=== PATIENT | male | born 1940 | race Caucasian/White ===

== ENCOUNTER 2016-09-08 09:26 | Emergency (ER) | payer MEDICARE, MEDICAID ==
--- NOTE | ~2016-09-08 | ER ---
PATIENT'S NAME: SURI LÓPEZ [facility] AGE: 76 Y [address] ROOM: [place] [id number] LOCATION: [facility] ADMIT DATE: 09/08/2016 ER/Outpatient Report DISCHARGE DATE: 09/08/2016 FAMILY PHYSICIAN: Armin Lara MD ATTENDING PHYSICIAN: Steven Baker HISTORY OF PRESENT ILLNESS: The patient is a 76-year-old male who presented with a chief complaint of bilateral arm issues. He states he was feeling his right arm last night, and he felt a tick, so he pulled it out, put it in an ashtray, put some teachers' aide fluid on it, and then he states he doused the tick bite wound with teachers' aide fluid as well. His other complaint is on his left arm. The other morning, when he was trying to find his remote in his bed, he rolled too far on the bed, fell off the bed, scraped his left elbow on the bottom of a humidifier, and suffered from a skin tear. He states he needed to bandage it, but he wanted this checked out today. The patient's primary doctor is Dr. Armin Lara, and he has seen him recently for "lung issues" and was put on Levaquin. He was also given a dose of dexamethasone and 1 g of Rocephin while in clinic the other day. He is still currently taking the Levaquin. The patient denies any range of motion difficulties in the upper extremities. No increased swelling. No signs of infection. No nausea or vomiting, headache, vision change, chest pain, shortness of breath, abdominal pain, diarrhea or constipation, or wounds elsewhere. ALLERGIES: THE PATIENT HAS NO KNOWN MEDICAL ALLERGIES. MEDICATIONS: Reviewed and are documented in the chart, please see medical record. PAST MEDICAL HISTORY: Includes COPD, hypertension, multiple sclerosis, and a history of bronchitis. SOCIAL HISTORY: He quit smoking 16 months ago, but had a [id number] history of smoking. He denies alcohol or drug use. REVIEW OF SYSTEMS: Complete and comprehensive review of systems was completed and is negative except as noted above in the HPI. PHYSICAL EXAMINATION: VITAL SIGNS: Height 5 feet 10 inches, weight 78.1 kg, blood pressure 111/82, pulse 65, respiratory rate 24, and temperature 97 TM, and O2 of 97% on room air. PATIENT'S NAME: SURI LÓPEZ [facility] AGE: 76 Y [address] ROOM: [place] [address] LOCATION: [facility] ADMIT DATE: 09/08/2016 ER/Outpatient Report DISCHARGE DATE: 09/08/2016 FAMILY PHYSICIAN: Armin Lara MD ATTENDING PHYSICIAN: Steven Baker GENERAL: The patient is in no acute distress, uses a cane for ambulation. He is alert and oriented x4. CHEST: Clear to auscultation bilaterally. CARDIOVASCULAR: Regular rate and rhythm. No murmurs, rubs, or gallops. ABDOMEN: Normal to inspection. Soft and nontender. Positive bowel sounds. EXTREMITIES: Moves all extremities. Nontender to palpation. There is a 2 cm area of erythema consistent with subcutaneous bleeding to the right upper arm just superior to the elbow. There is an area in the center with scabbing and what appears to be a firm, nodular substance under the scab. The left upper extremity just distal to the elbow with a skin tear approximately 2 cm and signs of healing, surrounding ecchymosis, nontender. Able to move left elbow without difficulty. Nontender. Nonbony tenderness of the remainder left upper extremity. Range of motion intact throughout. No signs of infection of either wound. Otherwise, remainder of skin is warm, dry, and intact. LABORATORY DATA: CBC was obtained showing a white count of 12, hemoglobin of 12.3, and platelets of 355. EMERGENCY DEPARTMENT COURSE: The patient's wounds were cleansed with sterile saline and soap. The right tick bite wound was inspected for the head of the tick. No foreign body retention products were observed. Wound was then re-cleansed. A petroleum gauze was placed over and then wrapped appropriately. The left skin tear was cleansed with sterile saline and soap with subsequent wound dressing as the same as the right. IMPRESSION: 1. Tick bite. 2. Left elbow skin tear from a fall. DISPOSITION: The patient was discharged home in good condition. Instructed to continue his current prescription of Levaquin. The patient was also instructed to follow up with his primary care provider in 2 to 3 days for re-evaluation of the skin wounds to ensure no signs of infection begin to develop. The patient was given wound care instructions which include keeping the areas clean and dry. AUREA NIELSEN MD RESIDENT FOR MD RESHMA WILLIAM/beronica PATIENT'S NAME: SURI LÓPEZ [facility] AGE: 76 Y [address] ROOM: [place] [address] LOCATION: [facility] ADMIT DATE: 09/08/2016 ER/Outpatient Report DISCHARGE DATE: 09/08/2016 FAMILY PHYSICIAN: Armin Lara MD ATTENDING PHYSICIAN: Steven Baker /[id number] d: 09/08/16 1645 t: 09/10/16 0612, OUTPATIENT REPORT
--- NOTE | ~2016-09-08 | ER ---
PATIENT'S NAME: SURI LÓPEZ [facility] AGE: 76 Y [address] ROOM: [place] [address] LOCATION: [facility] ADMIT DATE: 09/08/2016 ER/Outpatient Report DISCHARGE DATE: 09/08/2016 FAMILY PHYSICIAN: Armin Lara MD ATTENDING PHYSICIAN: Steven Baker HISTORY OF PRESENT ILLNESS: This patient is a 76-year-old male, who found a tick on his right arm. He tried to remove it, but he thinks the tick's head is still imbedded in his arm. He also suffered a skin tear to his left elbow. I saw the patient along with Dr. Palacios, resident from [facility] that is working here in the emergency department with Dr. Baker. See Dr. Palacios's dictation in the patient's ER visit. I agree with her assessment, impression, and treatment plan. MD PASQUALE WILLIAM/modl /[id number] d: 09/08/16 1525 t: 09/09/16 0604, OUTPATIENT REPORT
[~2016-09-08 09:26] MED LIST: ALBUTEROL2.5 MG/0.5 INH; ALBUTEROL2.5 MG/0.5 NEB; ASPIRIN LO-DOSE81 MG PO; ATROVENT I0.5 MG/2.5 INH; CATAPRES0.2 M1 PO; CATAPRES0.2 MG PO; CITROMA296 ML PO; COLACE100 MG; COLACE100 MG PO; COMPLETE MULTI1 EACH PO; CORDARONE,PACE200 MG PO; DELTASONE20 MG PO; DIAMOX250 MG PO; FEOSOL325 MG PO; GABAPENTIN100 MG PO; LASIX20 MG PO; LOPRESSOR25 MG PO; MILK OF MA400 MG/5 M PO; MIRALAX17 GM PO; MULTI VITAMIN1 EACH PO; NEURONTIN100 MG PO; NICODERM/HABITR21 MG TRANS; NORCO 10-325 T1 EACH PO; NORCO 5-325 MG1 TAB; PRAVACHOL20 MG PO; PRILOSEC20 MG PO; PROTONIX40 MG PO; REMERON15 M2 PO; REMERON15 MG PO; SYMBICORT 16010.2 GM INH; THERA-VITE W/ B1 TAB PO; TYLENOL325 MG PO; VITAMIN D-32000 UNIT PO; VITAMIN D1000 UNIT PO; XARELTO20 MG PO
[2016-09-08 10:31] LABS: BASOPHIL # 0.1 K/uL (0.0-0.2); BASOPHIL % 1.1 %; EOSINOPHIL # 0.2 K/uL (0.0-0.5); EOSINOPHIL % 1.7 %; HEMATOCRIT 41.7 % (37.0-53.0); HEMOGLOBIN 12.3 g/dL (11.0-16.0); IMMATURE GRANULOCYTE # 0.2 K/uL (0.0-0.3); IMMATURE GRANULOCYTE % 1.8 %; LYMPHOCYTE # 2.4 K/uL (0.8-4.0); LYMPHOCYTE % 19.7 %; MCH 26.1 pg (27.0-34.0); MCHC 29.5 gm/dL (32.0-36.5); MCV 88.5 fl (83.0-98.0); MONOCYTE # 1.2 K/uL (0.0-1.0); MONOCYTE % 9.9 %; MPV 10.2 fl (9.4-12.4); NEUTROPHIL # (ANC) 7.9 K/uL (1.4-9.0); NEUTROPHIL % 65.8 %; NRBC % 0 /100WBC (0-0.00); PLATELET COUNT 355 K/uL (150-450); RBC 4.71 M/uL (3.50-5.50)
== END 2016-09-08 11:03 | disposition disaster alternative care site (69) ==
LOC: GMED 09:26
PROVIDERS: Emergency Medicine
DX: S51.012A Laceration without foreign body of left elbow, initial encounter (principal); S40.861A Insect bite (nonvenomous) of right upper arm, initial encounter; Z23 Encounter for immunization; I10 Essential (primary) hypertension; J44.9 Chronic obstructive pulmonary disease, unspecified; W19.XXXA Unspecified fall, initial encounter; W57.XXXA Bitten or stung by nonvenomous insect and other nonvenomous arthropods, initial encounter